=== PATIENT | male | born 1985 | race Asian ===

== ENCOUNTER 2018-10-07 20:20 | Emergency (ER) | payer OTHER ==
[~2018-10-07] VITALS: Ht 165.1 cm; Wt 65.3 kg
[2018-10-07 20:23] VITALS: Ht 165.1 cm; Wt 65.3 kg
[2018-10-07 21:38] VITALS: BP 137/70
== END 2018-10-07 21:38 | disposition home or self-care (01) ==
LOC: ED 20:20
DX: M54.2 Cervicalgia (principal); M54.5 Low back pain; Z13.9 Encounter for screening, unspecified; V49.9XXA Car occupant (driver) (passenger) injured in unspecified traffic accident, initial encounter; Y93.89 Activity, other specified; Y92.89 Other specified places as the place of occurrence of the external cause; Y99.8 Other external cause status